=== PATIENT | male | born 1985 ===

== ENCOUNTER 2021-06-26 13:31 | Emergency (ER) | payer MEDICAID ==
[~2021-06-26] VITALS: Ht 188 cm; Wt 81.6 kg
[2021-06-26 13:33] VITALS: BP 140/93
[2021-06-26] MEDS ORDERED: PANTOPRAZOLE 40 MG/10 ML VIAL INJ IV ONE (14:00)
[2021-06-26] MEDS ORDERED: PROCHLORPERAZINE EDISYLATE 5 MG/ML 2ML VIAL IV ONE (14:00)
[2021-06-26] MEDS ORDERED: SODIUM CHLORIDE 0.9% 1,000 ML IV ONE (14:00)
== END 2021-06-26 14:29 | disposition left against medical advice (07) ==
LOC: ER 13:31
DX: R11.2 Nausea with vomiting, unspecified (principal); F12.10 Cannabis abuse, uncomplicated; F17.210 Nicotine dependence, cigarettes, uncomplicated
CPT/HCPCS: 93005; 96374; 96375; 99284; C9113; J0780; J7030